=== PATIENT | female | born 1935 | race Caucasian/White ===

== ENCOUNTER → 2017-12-06 | Outpatient (CLI) | payer MEDICARE, BC ==
[~2017-12-06] VITALS: Ht 157.5 cm; Wt 41.7 kg
[~2017-12-06] MED LIST: ACETYLCYST200 MG/1 M OR; ALBUTEROL2.5 MG/0.5 INH; ALDACTONE25 MG PO; AMLODIPINE BESYL5 M1 PO; AUGMENTIN 875-1 EACH PO; AZITHROMYCIN 2250 MG PO; BACTRIM DS TAB1 EACH PO; BUMETANIDE2 M1 PO; BUMEX2 MG PO; CALCIUM 600 +1 EAC1 PO; CIPROFLOXACIN500 M3 PO; COZAAR 25 MG TA25 M1 PO; COZAAR 50 MG TA50 M2 PO; CYCLOBENZAPRINE10 MG PO; FISH OIL 1,0001 EAC5 PO; FLAXSEED OIL1000 MG PO; FLEXERIL PO; HYDROCODONE-AP1 EAC2 PO; HYTRIN 1 MG CAP1 MG PO; KENALOG-1010 MG/ML IJ; LEVOTHROID 00.075 M1 PO; LEVOXYL88 MCG PO; LOPRESSOR 50 MG50 M1 PO; LOPRESSOR100 M1 PO; METAMUCIL1 EAC1 PO; METOPROLOL TART25 MG PO; MUCINEX D TABL1 EAC1 PO; MUCUS RELIEF D1 EAC1 PO; OMEGA-31000 M1 PO; OXYCODONE HCL 55 MG PO; PHENERGAN-CODE120 ML PO; PLAVIX 75 MG TA75 MG PO; PREMARIN0.625 MG PO; PRILOSEC 20 MG20 MG PO; PROLIA60 MG/1 ML IJ; PROPAFENONE 15150 MG PO; PROTONIX40 M1 PO; PROTONIX40 M2 PO; PROVENTIL IH; RECLAST 55 MG/100 M IJ; RESTORIL15 MG PO; SENOKOT-S TABL1 EACH PO; SKELAXIN 800 M800 M1 PO; SPIRONOLACTONE25 M1 PO; TOPROL XL50 MG PO; TRAMADOL 50 MG50 MG PO; TRAZODONE HCL50 MG PO; TYLENOL325 MG PO; ULTRAM 50MG TAB50 MG PO; ULTRAM ER300 MG PO; VICODIN 5-5001 EACH PO; VISTARIL 25 MG25 M1 PO; VITAMIN B125000 MCG PO; ZOCOR 10 MG TAB10 MG PO; ZOCOR 20 MG TAB20 M1 PO
[2017-12-06 09:34] VITALS: BP 154/60
== END ==
LOC: M.INT 08:40
DX: Z09 Encounter for follow-up examination after completed treatment for conditions other than malignant neoplasm (principal)

== ENCOUNTER → 2018-03-07 | Outpatient (CLI) | payer MEDICARE, BC ==
--- NOTE | 2018-03-07 14:45 | 2DMMODE ---
[place] [address] 2 D/M-MODE ECHOCARDIOGRAM Name: OFELIA MARI Room: [facility]#: [id number] Admission: 03/07/18 Attend Phys: Jarred Fink, Discharge: Date of : 39 Date of Service: 03/07/18 1445 Report #: [id number] THIS REPORT FOR: //name// APPROVED REPORT Study performed: 03/07/2018 09:06:57 EXAM: Comprehensive 2D, Doppler, and color-flow Echocardiogram Patient Location: Out-Patient Status: routine BSA: 1.41 HR: 54 bpm BP: 152/72 mmHg Other Information Study Quality: Good Indications Aortic Insuff. 2D Dimensions LVEF(%): 63.97 (>50%) IVSd: 9.57 (7-11mm) LVOT Diam: 18.86 (18-24mm) LVDd: 39.28 mm PWd: 9.37 (7-11mm) Ascending Ao: 24.83 (22-36mm) LVDs: 25.81 (25-40mm) Aortic Root: 22.28 mm Mccullough's LVEF: 63.97 % Volumes Left Atrial Volume (Systole) LA ESV Index: 15.90 mL/m2 Aortic Valve AoV Peak Anders.: 0.88 m/s AO Peak Gr.: 3.10 mmHg LVOT Max P.54 mmHg AO Mean Gr.: 1.65 mmHg LVOT Mean P.65 mmHg LVOT Max V: 0.94 m/s AO V2 VTI: 22.85 cm LVOT Mean V: 0.58 m/s UMESH (VTI): 3.19 cm2 LVOT V1 VTI: 26.14 cm Mitral Valve E/A Ratio: 1.03 MV Decel. Time: 232.06 [place] [address] 2 D/M-MODE ECHOCARDIOGRAM Name: OFELIA MARI Room: [facility]#: [id number] Admission: 03/07/18 Attend Phys: Jarred Fink, Discharge: Date of : 39 Date of Service: 03/07/18 1445 Report #: [id number] MV E Max Anders.: 0.90 m/s MV PHT: 67.30 ms MVA (PHT): 3.27 cm2 TDI E/Lateral E': 9.00 E/Medial E': 12.86 Medial E' Anders.: 0.07 m/s Lateral E' Anders.: 0.10 m/s Pulmonary Valve PV Peak Anders.: 0.72 m/s PV Peak Gr.: 2.10 mmHg Tricuspid Valve TR Peak Gr.: 22.49 mmHg RVSP: 27.49 mmHg Left Ventricle The left ventricle is normal size. There is normal LV segmental wall motion. There is normal left ventricular wall thickness. Left ventricular systolic function is normal. LVEF is 55-60%. Transmitral Doppler flow pattern suggests impaired LV relaxation. Right Ventricle The right ventricle is normal size. The right ventricular systolic function is normal. Atria The left atrium size is normal. The right atrium size is normal. Aortic Valve Aortic valve is mildly calcified. Mild aortic regurgitation. There is no aortic valvular stenosis. Mitral Valve The mitral valve is normal in structure. Mild to moderate mitral regurgitation. No evidence of mitral valve stenosis. Tricuspid Valve The tricuspid valve is normal in structure. Mild tricuspid regurgitation. The RVSP is __27.5 mmHg. Pulmonic Valve The pulmonary valve is normal in structure. There is no pulmonic valvular regurgitation[place] [address] 2 D/M-MODE ECHOCARDIOGRAM Name: OFELIA MARI Room: [facility]#: [id number] Admission: 03/07/18 Attend Phys: Jarred Fink, Discharge: Date of : 39 Date of Service: 03/07/18 1445 Report #: [id number] The aortic root is normal in size. IVC is normal in size and collapses with >50% inspiration Pericardium There is no pericardial effusion. <Conclusion> The left ventricle is normal size. There is normal left ventricular wall thickness. Left ventricular systolic function is normal. LVEF is 55-60%. Transmitral Doppler flow pattern suggests impaired LV relaxation. Aortic valve is mildly calcified. Mild aortic regurgitation. Mild to moderate mitral regurgitation. Mild tricuspid regurgitation. The RVSP is __27.5 mmHg. <ELECTRONICALLY SIGNED> By: Jarred Fink MD, [facility] 03/07/18 1445 1445 1445 Jarred Fink MD, FACC /INF
== END ==
LOC: M.CRD 08:38
DX: I08.3 Combined rheumatic disorders of mitral, aortic and tricuspid valves (principal)

== ENCOUNTER → 2018-07-27 | Outpatient (CLI) | payer MEDICARE, BC ==
[~2018-07-27] VITALS: Ht 157.5 cm; Wt 44.0 kg
[2018-07-27 10:16] LABS: CREATININE 1.7 mg/dL (0.6-1.3)
[2018-07-27 12:06] VITALS: BP 185/72
== END ==
LOC: M.LAB 07-20 10:00 → M.CT 07-20 11:00 → M.LAB 09:47
PROVIDERS: Radiology Diagnostic Radiology
DX: K57.90 Diverticulosis of intestine, part unspecified, without perforation or abscess without bleeding (principal); I70.0 Atherosclerosis of aorta; K76.89 Other specified diseases of liver; I77.1 Stricture of artery; J98.4 Other disorders of lung; M47.816 Spondylosis without myelopathy or radiculopathy, lumbar region; M25.78 Osteophyte, vertebrae; I10 Essential (primary) hypertension; E03.9 Hypothyroidism, unspecified; M06.9 Rheumatoid arthritis, unspecified; I48.91 Unspecified atrial fibrillation

== ENCOUNTER → 2019-04-26 | Outpatient (CLI) | payer MEDICARE, BC | LOC: M.CT 07:21 | DX: K76.89 Other specified diseases of liver (principal); I77.810 Thoracic aortic ectasia; M51.84 Other intervertebral disc disorders, thoracic region; I70.8 Atherosclerosis of other arteries ==

== ENCOUNTER → 2019-07-12 | Outpatient (CLI) | payer MEDICARE, BC ==
[~2019-07-12] VITALS: Ht 157.5 cm; Wt 45.1 kg
[2019-07-12 09:47] LABS: CREATININE 1.6 mg/dL (0.6-1.3)
[2019-07-12 12:03] VITALS: BP 168/55
== END ==
LOC: M.LAB 09:19 → M.CT 11:00
PROVIDERS: Radiology Diagnostic Radiology
DX: K76.89 Other specified diseases of liver (principal); K55.1 Chronic vascular disorders of intestine; I25.10 Atherosclerotic heart disease of native coronary artery without angina pectoris; K57.30 Diverticulosis of large intestine without perforation or abscess without bleeding; M47.816 Spondylosis without myelopathy or radiculopathy, lumbar region; I77.811 Abdominal aortic ectasia

== ENCOUNTER 2019-09-18 08:50 | Inpatient (IN) | payer MEDICARE, BC ==
[~2019-09-18] VITALS: Ht 157.5 cm; Wt 46.3 kg
[~2019-09-18 08:50] MED LIST changes: -ALDACTONE25 MG PO
[2019-09-18 08:58] VITALS: BP 201/72
[2019-09-18 09:20] LABS: ABSOLUTE BASOPHILS 0.1 thou/uL (0.0-0.2); ABSOLUTE EOSINOPHILS 0.4 thou/uL (0.0-0.7); ABSOLUTE LYMPHOCYTES 2.8 thou/uL (0.8-5.3); ABSOLUTE MONOCYTES 0.4 thou/uL (0.0-1.2); ABSOLUTE NEUTROPHILS 6.7 thou/uL (1.6-8.1); BASOPHILS 0.9 %; EOSINOPHILS 3.5 %; HEMATOCRIT 39.9 % (37.0-47.0); HEMOGLOBIN 13.1 gm/dL (12.0-15.0); LYMPHOCYTES 27.3 %; MCH 27.8 pg (26.0-34.0); MCHC 32.8 g/dL (28.0-37.0); MCV 84.6 fL (80.0-100.0); MONOCYTES 4.2 %; MPV 9.2 fl. (7.2-11.1); NUCLEATED RBCS 0 /100WBC; PLATELET COUNT* 330 thou/uL (150-400); POLYS 64.1 %; RBC 4.72 mil/uL (4.20-5.00); RDW-CV 14.2 % (10.5-14.5); WBC 10.4 thou/uL (4.0-11.0)
[2019-09-18] MEDS ORDERED: TRAMADOL 50 MG50 MG PO (09:27)
[2019-09-18 09:37] LABS: APTT 25.1 Seconds (25.0-31.3)
[2019-09-18 09:41] LABS: CALCIUM 8.8 mg/dL (8.5-10.1); CREATININE 1.5 mg/dL (0.6-1.3); POTASSIUM 3.2 mmol/L (3.5-5.1)
[2019-09-18 09:52] LABS: ALBUMIN 3.2 g/dL (3.4-5.0); TOTAL BILIRUBIN 0.4 mg/dL (<0.1-1.0); TOTAL PROTEIN 7.3 g/dL (6.4-8.2)
[2019-09-18 10:48] LABS: URINE BILIRUBIN NEGATIVE (Negative); URINE BLOOD NEGATIVE (Negative); URINE CLARITY CLEAR; URINE COLOR YELLOW; URINE GLUCOSE-RANDOM NEGATIVE (Negative); URINE KETONES NEGATIVE (Negative); URINE LEUKOCYTES-REFLEX NEGATIVE (Negative); URINE NITRITE-REFLEX NEGATIVE (Negative); URINE PROTEIN NEGATIVE (Negative); URINE SPECIFIC GRAVITY 1.015 (1.005-1.030); URINE UROBILINOGEN 0.2 E.U./dl (0.2-1.0)
--- NOTE | 2019-09-18 11:16 | EKG ---
[place] [address] ELECTROCARDIOGRAM REPORT Name: OFELIA MARI Room: [facility]#: [id number] Admission: 09/18/19 Attend Phys: Discharge: Date of : 39 Report #: [id number] THIS REPORT FOR: //name// 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: TABITHA : 1935 Requested By: Lakhwinder Walker Order Number: [id number] MD: Jarred Fink Measurements Intervals [place] Rate: 58 P: 52 IN: 272 QRS: -72 QRSD: 106 T: 74 QT: 466 QTc: 458 Interpretive Statements Sinus rhythm Prolonged IN interval Left anterior fascicular block Borderline low voltage, extremity leads Abnormal R-wave progression, late transition Borderline repolarization abnormality Compared to ECG 05/23/2017 08:58:09 Sinus bradycardia no longer present Possible ischemia no longer present Electronically Signed On 09-18-2019 11:16:08 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
[2019-09-18 14:56] VITALS: BP 129/49
[2019-09-18 15:30] VITALS: BP 145/44
--- NOTE | 2019-09-18 16:26 | NUR ---
PT RECEIVED FROM ER AT 1530, GET SITUATED TO ROOM. TELE IN PLACED TRACING SR ON MONITOR. PT COMPLAINS OF TOOTHACHE. AOX4, UP SBA, O2 SAT 90'S 1L NC. VSS, ADMISSION ASSESSMENT CHARTED. HOURLY ROUNDING, WILL CONTINUE TO MONITOR.
[2019-09-18 16:34] VITALS: BP 144/46
--- NOTE | 2019-09-18 17:50 | 2DMMODE ---
[place] [address] 2 D/M-MODE ECHOCARDIOGRAM Name: OFELIA MARI Room: [address] [place] [facility]#: [id number] Admission: 09/18/19 Attend Phys: Quinn Rosado, Discharge: Date of : 39 Date of Service: 09/18/19 1750 Report #: [id number] THIS REPORT FOR: //name// APPROVED REPORT Study performed: 09/18/2019 15:21:55 EXAM: Comprehensive 2D, Doppler, and color-flow Echocardiogram Patient Location: In-Patient Room #: [facility] Status: routine BSA: 1.43 HR: 60 bpm BP: 133/50 mmHg Rhythm: NSR Other Information Study Quality: Good Indications CVA/TIA Echo Enhancing Agent Indication: Rule out Shunt Agent(s) / Amount(s) Used: Agitated Saline 10 cc 2D Dimensions IVSd: 7.44 (7-11mm) LVOT Diam: 19.59 (18-24mm) LVDd: 43.84 mm PWd: 7.77 (7-11mm) Ascending Ao: 27.89 (22-36mm) LVDs: 20.66 (25-40mm) Aortic Root: 28.91 mm Volumes Left Atrial Volume (Systole) LA ESV Index: 27.70 mL/m2 Aortic Valve AoV Peak Anders.: 1.11 m/s AO Peak Gr.: 4.95 mmHg LVOT Max P.95 mmHg AO Mean Gr.: 3.00 mmHg LVOT Mean P.43 mmHg LVOT Max V: 1.22 m/s AO V2 VTI: 29.61 cm LVOT Mean V: 0.69 m/s UMESH (VTI): 2.87 cm2 LVOT V1 VTI: 28.22 cm AI Tompkins: 2.63 m/s2 [place] [address] 2 D/M-MODE ECHOCARDIOGRAM Name: OFELIA MARI Room: [address] [place] .R.#: [id number] Admission: 09/18/19 Attend Phys: Quinn Rosado, Discharge: Date of : 39 Date of Service: 09/18/19 1750 Report #: [id number] AI PHT: 335.32 ms Mitral Valve MV Mean Gr.: 3.18 mmHg E/A Ratio: 0.81 MV Decel. Time: 297.84 ms MV E Max Anders.: 0.99 m/s MV PHT: 86.37 ms MVA (PHT): 2.55 cm2 TDI E/Lateral E': 11.00 E/Medial E': 16.50 Medial E' Anders.: 0.06 m/s Lateral E' Anders.: 0.09 m/s Pulmonary Valve PV Peak Anders.: 0.87 m/s PV Peak Gr.: 3.04 mmHg Tricuspid Valve RAP Estimate: 5.00 mmHg TR Peak Gr.: 23.11 mmHg RVSP: 28.00 mmHg PA Pressure: 28.00 mmHg Left Ventricle The left ventricle is normal size. There is normal LV segmental wall motion. There is normal left ventricular wall thickness. Left ventricular systolic function is normal. LVEF is 65-70%. Grade I - abnormal relaxation pattern. Right Ventricle The right ventricle is normal size. The right ventricular systolic function is normal. Atria The left atrium size is normal. Interatrial septum is intact without evidence of ASD or PFO. The right atrium size is normal. Aortic Valve Mild aortic valve sclerosis. Mild aortic regurgitation. There is no aortic valvular stenosis. Mitral Valve There is mitral annular calcification. Mild mitral regurgitation. No evidence of mitral valve stenosis. Tricuspid Valve The tricuspid valve is normal in structure[place] [address] 2 D/M-MODE ECHOCARDIOGRAM Name: KAMALJITOFELIA JULIO Room: [address] [place] M.R.#: [id number] Admission: 09/18/19 Attend Phys: Quinn Rosado, Discharge: Date of : 39 Date of Service: 09/18/19 2270 Report #: [id number] regurgitation. No pulmonary hypertension. Pulmonic Valve The pulmonary valve is normal in structure. There is no pulmonic valvular regurgitation. Great Vessels The aortic root is normal in size. IVC is normal in size and collapses >50% with inspiration. Pericardium There is no pericardial effusion. <Conclusion> The left ventricle is normal size. There is normal left ventricular wall thickness. Left ventricular systolic function is normal. LVEF is 65-70%. Grade I - abnormal relaxation pattern. Mild aortic regurgitation. Mild mitral regurgitation. Mild tricuspid regurgitation. No pulmonary hypertension. IVC is normal in size and collapses >50% with inspiration. Interatrial septum is intact without evidence of ASD or PFO. <ELECTRONICALLY SIGNED> By: Jarred Fink MD, FACC 09/18/191749 49 49 Jarred Fink MD, FACC /INF
[2019-09-18 20:00] VITALS: BP 132/76
[2019-09-19] VITALS (8 sets, daily range): BP systolic 104–156; BP diastolic 38–80
[2019-09-19 02:06] LABS: GLYCOHEMOGLOBIN (HGB A1C) 5.5 % (4.8-5.6)
[2019-09-19 04:47] LABS: ABSOLUTE BASOPHILS 0.1 thou/uL (0.0-0.2); ABSOLUTE EOSINOPHILS 0.3 thou/uL (0.0-0.7); ABSOLUTE LYMPHOCYTES 2.8 thou/uL (0.8-5.3); ABSOLUTE MONOCYTES 0.4 thou/uL (0.0-1.2); ABSOLUTE NEUTROPHILS 5.9 thou/uL (1.6-8.1); BASOPHILS 0.6 %; EOSINOPHILS 3.3 %; HEMATOCRIT 36.5 % (37.0-47.0); HEMOGLOBIN 11.8 gm/dL (12.0-15.0); LYMPHOCYTES 29.8 %; MCH 27.6 pg (26.0-34.0); MCHC 32.3 g/dL (28.0-37.0); MCV 85.3 fL (80.0-100.0); MONOCYTES 4.6 %; MPV 9.1 fl. (7.2-11.1); NUCLEATED RBCS 0 /100WBC; PLATELET COUNT* 285 thou/uL (150-400); POLYS 61.7 %; RBC 4.28 mil/uL (4.20-5.00); RDW-CV 14.1 % (10.5-14.5); WBC 9.5 thou/uL (4.0-11.0)
[2019-09-19 05:11] LABS: ANION GAP 9 mmol/L (7-16); BUN 12 mg/dL (7-18); CALCIUM 8.1 mg/dL (8.5-10.1); CHLORIDE 104 mmol/L (98-107); CHOLESTEROL 199 mg/dL (<200); CO2 26 mmol/L (21-32); CREATININE 1.2 mg/dL (0.6-1.3); GLUCOSE 92 mg/dL (70-99); HDL CHOLESTEROL 55 mg/dL (>40); LDL CHOLESTEROL 117 mg/dL (<100); POTASSIUM 4.1 mmol/L (3.5-5.1); SODIUM 139 mmol/L (136-145); TC:HDL 3.6 Ratio (Not establshd); TRIGLYCERIDE 138 mg/dL (<150); VLDL 28 mg/dL (<40)
--- NOTE | 2019-09-19 05:16 | NUR ---
ASSUMED CARE OF PT AFTER REPORT AT 1930. PT A&OX4. VSS. PHYSICAL ASSESSMENT COMPLETED AND CHARTED. PT ON RA. PT TRACING SR/SB/1ST DEG ON TELE. PT UPSTANDBY TO RESTROOM. PT HAD EPISODE OF DIZZINESS WHILE IN THE RESTROOM BUT DID NOT FALL. PT COMPLAINED OF TOOTHACHE-MED GIVEN PER JAN. [facility] CHARTED. PT ABLE TO SLEEP WELL ON BED. CALL LIGHT WITHIN REACH.
[2019-09-19 05:38] LABS: SERUM ASSESSMENT Clear
--- NOTE | 2019-09-19 12:55 | NUR ---
Nutrition: Pt admitted with dizziness. She stated she feels better now, a little dizzy and her tooth is "still bugging me." She stated she asked her RN for Ensure and mashed potatoes on lunch tray. RD did not see the order, so provided pt with Ensure and showed meal to pt. Pt agreed that the scalloped potatoes would be fine for her tooth pain. RD ordered Ensure denzel TID. Albumin 3.2. CKD III, HTN. Wt is at usual 100#. Mild risk.
--- NOTE | 2019-09-19 14:19 | NUR ---
MET WITH PT TO DISCUSS HOME SITUATION/DC PLANNING. PT LIVES ALONE, IS NORMALLY INDEPENDENT AND ACTIVE. USES NO EQUIPMENT. SHE HAD HH IN PAST AFTER A SHOULDER SURGERY. PT STATES SHE HAS A 'BAD TOOTH' AND NEEDS TO SEE A DENTIST. C/O OF DIZZINESS. GETTING A FLUID BOLUS AND THERAPY EVALS. WILL F/U AND DISCUSS DC PLAN FURTHER TOMORROW, HOME WITH HH VS SNF
--- NOTE | 2019-09-19 16:17 | NUR ---
PT UP IN ROOM WITH STEADY GAIT. PT REPORTS DIZZINESS THIS AM IMPROVED WITH IVF. TREMORS PRESENT. TOLERATING PO WELL
[2019-09-20] VITALS: BP 124/40
--- NOTE | 2019-09-20 03:22 | NUR ---
RECEIVED REPORT AND ASSUMED CARE AT 1900. VSS. CARDIAC MONITORING IN PLACE. PT DENIES COMPLAINTS OF PAIN. ASSESSMENT COMPLETED CHARTED. PT UP WITH ASSIST, ON RA. BED LOCKED IN LOWEST POSITION, CALL LIGHT WITHIN REACH, BED ALARM ON.
[2019-09-20 04:00] VITALS: BP 107/40
[2019-09-20 07:00] VITALS: BP 118/42
--- NOTE | 2019-09-20 08:57 | NUR ---
INITAL ASSESSMENT COMPLETED CHARTED. VSS. TRACING SB WITH 1ST DEGREE BLOCK. PT C/O 6/10 TOOTH PAIN. NO OTHER CONCERNS AT THIS TIME. HOURLY ROUNDING IN PLACE FOR PT SAFETY. CLWR
--- NOTE | 2019-09-20 12:00 | NUR ---
ORDERS NOTED FOR DC HOME WITH HH. PT AGREEABLE TO HH, WANTED TO USE SAME CO LAST TIME. [facility] CALLED AND ORDERS FAXED TO THEM
[2019-09-20 12:04] VITALS: BP 135/32
[2019-09-20 12:07] VITALS: BP 135/32
[2019-09-20] MEDS ORDERED: CLEOCIN HCL150 MG PO (12:14)
== END 2019-09-20 13:37 | disposition home or self-care (01) | DRG 683 ==
LOC: M.ERS 08:50 → M.2W 10:48 → M.TBA-ER 10:48 → M.2W 15:10
PROVIDERS: Family Medicine; ADMIT Internal Medicine
DX: I12.9 Hypertensive chronic kidney disease with stage 1 through stage 4 chronic kidney disease, or unspecified chronic kidney disease (principal); N17.9 Acute kidney failure, unspecified; E44.0 Moderate protein-calorie malnutrition; I16.0 Hypertensive urgency; N18.3 Chronic kidney disease, stage 3 (moderate); E03.9 Hypothyroidism, unspecified; I48.91 Unspecified atrial fibrillation; M06.9 Rheumatoid arthritis, unspecified; K02.9 Dental caries, unspecified; F43.9 Reaction to severe stress, unspecified; Z90.49 Acquired absence of other specified parts of digestive tract; Z90.710 Acquired absence of both cervix and uterus; Z88.6 Allergy status to analgesic agent; Z88.1 Allergy status to other antibiotic agents; Z88.8 Allergy status to other drugs, medicaments and biological substances; Z82.49 Family history of ischemic heart disease and other diseases of the circulatory system; Z79.899 Other long term (current) drug therapy

== ENCOUNTER → 2019-12-24 | Outpatient (CLI) | payer MEDICARE, BC ==
[~2019-12-24] MED LIST changes: +CLEOCIN HCL150 MG PO
== END ==
LOC: M.CT 12-20 11:00
DX: K76.89 Other specified diseases of liver (principal); J98.4 Other disorders of lung; M41.86 Other forms of scoliosis, lumbar region; M47.815 Spondylosis without myelopathy or radiculopathy, thoracolumbar region

== ENCOUNTER 2020-07-28 08:51 | Emergency (ER) | payer MEDICARE, BC ==
[~2020-07-28] VITALS: Ht 157.5 cm; Wt 47.2 kg
[2020-07-28] MEDS ORDERED: NORCO 5-325 TA1 EAC2 PO (09:48)
[2020-07-28 10:08] VITALS: BP 150/80
== END 2020-07-28 10:08 | disposition home or self-care (01) ==
LOC: M.ERS 08:51
DX: S46.911A Strain of unspecified muscle, fascia and tendon at shoulder and upper arm level, right arm, initial encounter (principal); Z79.899 Other long term (current) drug therapy; Z88.6 Allergy status to analgesic agent; Z88.1 Allergy status to other antibiotic agents; Z88.8 Allergy status to other drugs, medicaments and biological substances; X50.1XXA Overexertion from prolonged static or awkward postures, initial encounter; Y93.89 Activity, other specified; Y92.89 Other specified places as the place of occurrence of the external cause; Y99.8 Other external cause status

== ENCOUNTER → 2020-08-26 | Outpatient (CLI) | payer MEDICARE, BC ==
[~2020-08-26] VITALS: Ht 157.5 cm; Wt 49.9 kg
[~2020-08-26] MED LIST changes: +NORCO 5-325 TA1 EAC2 PO
[2020-08-26 12:21] LABS: CREATININE 1.3 mg/dL (0.6-1.3)
[2020-08-26 13:16] VITALS: BP 144/88
[2020-08-26 13:40] VITALS: BP 153/43
== END ==
LOC: M.CT 09:00 → M.LAB 11:48 → M.CT 13:00
PROVIDERS: ATTEND Radiology Diagnostic Radiology
DX: I77.4 Celiac artery compression syndrome (principal); I70.8 Atherosclerosis of other arteries; I70.1 Atherosclerosis of renal artery; J98.11 Atelectasis; J90 Pleural effusion, not elsewhere classified; M41.85 Other forms of scoliosis, thoracolumbar region; M47.815 Spondylosis without myelopathy or radiculopathy, thoracolumbar region; K76.89 Other specified diseases of liver; K55.1 Chronic vascular disorders of intestine; Z90.710 Acquired absence of both cervix and uterus; Z95.820 Peripheral vascular angioplasty status with implants and grafts; Z96.612 Presence of left artificial shoulder joint

== ENCOUNTER → 2021-12-30 | Outpatient (CLI) | payer MEDICARE, BC ==
[2021-12-30 11:00] LABS: CHOLESTEROL 228 mg/dL (<200); HDL CHOLESTEROL 74 mg/dL (>40); LDL CHOLESTEROL 119 mg/dL (<100); TC:HDL 3.1 Ratio (Not establshd); TRIGLYCERIDE 175 mg/dL (<150); VLDL 35 mg/dL (<40)
[2021-12-30 11:01] LABS: SERUM ASSESSMENT Clear
== END ==
LOC: M.LAB 10:05
PROVIDERS: ATTEND Internal Medicine Cardiovascular Disease
DX: E78.2 Mixed hyperlipidemia (principal)